=== PATIENT | female | born 1935 | race Hispanic/Latino ===

== ENCOUNTER 2020-03-01 11:56 | Emergency (ER) | payer MEDICAID, MEDICARE ==
[2020-03-01] MEDS ORDERED: Morphine 4 MG/ML VIAL ONE (12:19)
--- NOTE | 2020-03-01 13:07 | RAD ---
XR Hip Rt 2-3 View INDICATION: Right hip pain COMPARISON: None FINDINGS: Bones: No acute osseous abnormality. Bone mineralization appears within normal limits. 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 Intrapelvic contents: Visualized bowel gas pattern is within normal limits. Surrounding soft tissues: There is a focus of heterotopic ossification involving the soft tissues adj acent to the right ischial tuberosity. IMPRESSION: 1. No acute osseous abnormality.
--- NOTE | 2020-03-01 13:07 | RAD ---
AP view of the pelvis INDICATION: Pelvic pain COMPARISON: None. FINDINGS: Bones: There is surface artifact overlying the left iliac crest. There is suspicion for a healed post traumatic deformity involving the left iliac crest. 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 No acute fracture is evident. Hips: Moderate osteoarthrosis of the right hip. 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 Intrapelvic contents: Within normal limits. IMPRESSION: No acute osseous abnormality.
== END 2020-03-01 14:06 | disposition home or self-care (01) ==
LOC: ERS 11:56
DX: M25.551 Pain in right hip (principal); E11.9 Type 2 diabetes mellitus without complications; M19.90 Unspecified osteoarthritis, unspecified site; Z79.84 Long term (current) use of oral hypoglycemic drugs; Z79.899 Other long term (current) drug therapy
CPT/HCPCS: 72170; 96372; J2270